=== PATIENT | female | born 1955 | race Hispanic/Latino ===

== ENCOUNTER 2024-08-14 11:56 | Inpatient (IN) | payer MEDICARE ==
[2024-08-14 12:16] LABS: Actual Bicarbonate (HCO3a) 17.6 mEq/L (22-28); Analyzer IN Cardio ER; CO2 Tension 36.2 mmHg (35.0-45.0); Calcium, Ionized (arterial) 1.13 mmol/L (1.12-1.30); Carboxyhemoglobin (COHb) 1.2 gm% (0.0-3.0); Hematocrit-ABG 40 % (36.0-47.0); Hemoglobin (Hb) 13.7 g/dL (12.0-16.0); O2 Tension (PaO2), arterial 68.1 mmHg (> 80.0); Potassium - ABG Lab 5.42 mmol/L (3.70-5.30); pH, Arterial 7.304 (7.35-7.45)
[2024-08-14 12:17] LABS: #Basophils Less than 0.03 10x3/uL (0.0-0.2); #Eosinphils Less than 0.03 10x3/uL (0.0-0.7); %Basophils 0.2 % (0.0-1.0); %Eosinophils 0.1 % (0.0-10.0); %Lymphocytes 11.1 % (21.0-51.0); %Neutrophils 79.9 % (42.0-75.0); Hematocrit 39.8 % (36.0-47.0); Hemoglobin 13.3 g/dL (12.0-16.0); Mean Corpuscular HGB CONC 33.4 g/dL (32.0-36.0); Mean Corpuscular Hemoglobin 36.1 pg (27.0-31.0); Mean Corpuscular Volume 108.2 fL (78.0-98.0); Platelet Count 83 10x3/uL (130-400); Red Blood Cell (RBC) Count 3.68 mill/uL (4.20-5.40)
[2024-08-14] MEDS ORDERED: Metoclopramide HCl 10 MG (2 mL) VIAL ONE (12:31)
[2024-08-14 13:00] LABS: ALT (SGPT) 66 U/L (8-55); AST (SGOT) 79 U/L (5-34); Albumin 2.5 g/dL (3.4-4.8); Alkaline Phosphatase 123 U/L (40-110); Anion Gap 15 mmol/L (10-20); BUN (Urea Nitrogen) 43 mg/dL (9.8-20.1); Calc. Creatinine Clearance 0 mL/min (70-130); Calcium 8.2 mg/dL (7.8-10.44); Carbon Dioxide 20 mmol/L (23-31); Chloride 105 mmol/L (98-107); Estimated GFR 44; Globulin 4.4 g/dL (2.4-3.5); Glucose 188 mg/dL (80-115); Potassium 6.2 mmol/L (3.5-5.1); Protein, Total 6.9 g/dL (5.8-8.1); Sodium 134 mmol/L (136-145)
[2024-08-14 13:06] LABS: Acetaminophen Less than 10 mcg/mL (Less than 10); Alcohol Less than 10.0 mg/dL (Less than 10); Salicylate Less than 8.0 mg/dL (Less than 8.0)
[2024-08-14 13:12] LABS: Troponin I 0.027 ng/mL (< 0.028)
[2024-08-14 14:51] LABS: Amphetamine Not Detected (NotDetected); Barbiturates Screen Not Detected (NotDetected); Benzodiazepine Screen Not Detected (NotDetected); Cocaine Metabolite Screen Not Detected (NotDetected); Methadone Not Detected (NotDetected); Methamphetamine Detected (NotDetected); Opiate Screen Detected (NotDetected); Oxycodone Screen Not Detected (NotDetected); Phencyclidine (PCP) Not Detected (NotDetected); THC/Cannabinoid Screen Not Detected (NotDetected); Tricyclic Screen Not Detected (NotDetected)
[2024-08-14 14:57] LABS: Bilirubin Negative (Negative); Blood, Urine Negative (Negative); CAUTI Indications for Culture Alt mental st,lethar; Clarity Turbid (Clear); Glucose, Urine (Dipstick) Normal (Negative); Ketone, Urine Negative (Negative); Leukocyte Negative Leu/uL (Negative); Nitrite Negative (Negative); Protein, Urine (Dipstick) 20 mg/dL (Neg-Trace); Specific Gravity, Urine 1.025 (1.002-1.036); Squamous Epithelial 0-3 HPF (0-3); pH, Urine 5.5 (5.0-9.0)
[2024-08-14 15:05] LABS: Anion Gap 17 mmol/L (10-20); BUN (Urea Nitrogen) 43 mg/dL (9.8-20.1); Calc. Creatinine Clearance 0 mL/min (70-130); Calcium 8.1 mg/dL (7.8-10.44); Carbon Dioxide 14 mmol/L (23-31); Chloride 107 mmol/L (98-107); Estimated GFR 49; Glucose 180 mg/dL (80-115); Potassium 6.1 mmol/L (3.5-5.1); Sodium 132 mmol/L (136-145)
[2024-08-14 15:06] LABS: Oval Fat Bodies/HPF Rare HPF (None Seen)
[2024-08-14 15:08] LABS: Bacteria/HPF Rare-Few HPF (None Seen); Urine Culture Reflex No No; Yeast-Budding Rare HPF (None Seen)
[2024-08-14] MEDS ORDERED: Dextrose 50% Abboject 50 ML SYRINGE SLOW IVP PRN (16:02)
[2024-08-14] MEDS ORDERED: Dextrose 10% in Water 250 ML ONE (16:21)
[2024-08-14] MEDS ORDERED: Acetaminophen 650 MG Suppository PR PRN (17:04)
[2024-08-14] MEDS ORDERED: Calcium Carbonate 500 MG ChewTAB PO PRN (17:04)
[2024-08-14] MEDS ORDERED: Senokot S 8.6-50 MG TAB PO PRN (17:04)
[2024-08-14] MEDS ORDERED: Acetaminophen 325 MG TAB PO PRN (17:04)
[2024-08-14] MEDS ORDERED: Ondansetron PF 4 MG/2 ML Vial IVP PRN (17:04)
[2024-08-14] MEDS: Insulin Regular, Human 100 UNIT/ML 10 ML VIAL IVP SCH (17:49)
[2024-08-14] MEDS: Sodium Chloride 0.9% 1,000 ML IV SCH (17:49)
[2024-08-14] MEDS: Aspirin 325 MG TAB PO SCH (17:51)
[2024-08-14] MEDS: Sodium Bicarb 50 MEQ/50 ML Abboject 8.4% SYRINGE IVP SCH (18:15)
[2024-08-14] MEDS: Albumin 25% 25 GM (100 mL) BOT IVPB SCH (18:15)
[2024-08-14] MEDS ORDERED: Albumin 25% 100 ML ONE (18:25)
[2024-08-14] MEDS ORDERED: Sodium Bicarb 50 MEQ/50 ML Abboject 8.4% SYRINGE ONE (18:25)
[2024-08-14 19:51] VITALS: BMI 41.2
[2024-08-15] MEDS: Sodium Chloride 0.9% 1,000 ML IV SCH (04:15)
[2024-08-15 06:30] LABS: #Basophils Less than 0.03 10x3/uL (0.0-0.2); %Eosinophils 0.8 % (0.0-10.0); %Lymphocytes 18.2 % (21.0-51.0); %Monocytes 7.9 % (0.0-10.0); %Neutrophils 72.7 % (42.0-75.0); Hematocrit 31.2 % (36.0-47.0); Hemoglobin 10.3 g/dL (12.0-16.0); Mean Corpuscular Hemoglobin 36.1 pg (27.0-31.0); Mean Corpuscular Volume 109.5 fL (78.0-98.0); Platelet Count 47 10x3/uL (130-400); RBC Distribution Width 15.1 % (11.5-14.5); Red Blood Cell (RBC) Count 2.85 mill/uL (4.20-5.40)
[2024-08-15 06:41] LABS: ALT (SGPT) 62 U/L (8-55); AST (SGOT) 70 U/L (5-34); Albumin 3.4 g/dL (3.4-4.8); Alkaline Phosphatase 77 U/L (40-110); Anion Gap 17 mmol/L (10-20); BUN (Urea Nitrogen) 46 mg/dL (9.8-20.1); Bilirubin, Total 3.9 mg/dL (0.2-1.2); Calc. Creatinine Clearance 59 mL/min (70-130); Carbon Dioxide 18 mmol/L (23-31); Chloride 108 mmol/L (98-107); Estimated GFR 43; Globulin 2.7 g/dL (2.4-3.5); Glucose 124 mg/dL (80-115); Potassium 5.1 mmol/L (3.5-5.1); Protein, Total 6.1 g/dL (5.8-8.1); Sodium 138 mmol/L (136-145)
[2024-08-16 08:40] VITALS: TEMP 98.8
[2024-08-16 12:44] VITALS: BP 119/73
== END 2024-08-16 15:15 | disposition hospice, home (50) | DRG 682 ==
LOC: SUATTDRO 11:56 → ERS 11:56 → ERHOLD 16:00 → 2SE 19:46
PROVIDERS: ADMIT Internal Medicine; ATTEND Internal Medicine
PROC: 4A00X4Z Measurement of Central Nervous Electrical Activity, External Approach (ICD-10-PCS; principal; 2024-08-14)
PROC: 4A033R1 Measurement of Arterial Saturation, Peripheral, Percutaneous Approach (ICD-10-PCS; 2024-08-14)
PROC: 30233J1 Transfusion of Nonautologous Serum Albumin into Peripheral Vein, Percutaneous Approach (ICD-10-PCS; 2024-08-14)
DX: N17.9 Acute kidney failure, unspecified (principal); G92.8 Other toxic encephalopathy; C22.8 Malignant neoplasm of liver, primary, unspecified as to type; E87.1 Hypo-osmolality and hyponatremia; E87.20 Acidosis, unspecified; Z66 Do not resuscitate; Z51.5 Encounter for palliative care; E87.5 Hyperkalemia; R74.01 Elevation of levels of liver transaminase levels; N18.9 Chronic kidney disease, unspecified; I25.10 Atherosclerotic heart disease of native coronary artery without angina pectoris; G47.33 Obstructive sleep apnea (adult) (pediatric); E86.0 Dehydration; G93.89 Other specified disorders of brain; K74.60 Unspecified cirrhosis of liver; E11.22 Type 2 diabetes mellitus with diabetic chronic kidney disease; I50.9 Heart failure, unspecified; Z98.891 History of uterine scar from previous surgery; Z98.890 Other specified postprocedural states; Z92.21 Personal history of antineoplastic chemotherapy; Z95.818 Presence of other cardiac implants and grafts; D69.6 Thrombocytopenia, unspecified
CPT/HCPCS: 36415; 36416; 51701; 70450; 71045; 80053; 80306; 80307; 81001; 82140; 82805; 84443; 84484; 85025; 93005; 95813; 96374; 96375; J2765; J7030; P9047